=== PATIENT | male | born 1975 | race African-American/Black ===

== ENCOUNTER 2017-10-23 09:54 | Emergency (ER) | payer SELFPAY ==
[~2017-10-23] VITALS: Ht 188 cm; Wt 104.3 kg
[2017-10-23 10:26] VITALS: BP 133/86
== END 2017-10-23 10:26 | disposition home or self-care (01) ==
LOC: EME 09:54
DX: S01.01XA Laceration without foreign body of scalp, initial encounter (principal); W22.8XXA Striking against or struck by other objects, initial encounter
CPT/HCPCS: 99281; 99283